=== PATIENT | female | born 1985 | race American Indian/Alaskan Native ===

== ENCOUNTER 2019-07-10 11:53 | Emergency (ER) | payer OTHER ==
[2019-07-10 12:07] VITALS: BP 104/63; PULSE 75
[2019-07-10] MEDS ORDERED: Sodium Chloride 0.9% 10 ML Syringe FLUSH PRN (12:13)
[2019-07-10] MEDS ORDERED: Aspirin 81 MG Tab.Chew PO ONE (12:14)
[2019-07-10 12:33] LABS: ANION GAP 13.8; CHLORIDE,CL 106 mmol/L (101-111); SODIUM,NA 136 mmol/L (135-145)
[2019-07-10] MEDS ORDERED: ClonazePAM 0.5 MG Tab PO ONE (13:05)
[2019-07-10] MEDS ORDERED: Omeprazole 20 MG Cap.CR PO ONE (13:05)
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
== END 2019-07-10 13:23 | disposition home or self-care (01) ==
LOC: DL.ED 11:53
DX: K20.9 Esophagitis, unspecified (principal); F41.9 Anxiety disorder, unspecified; Z88.5 Allergy status to narcotic agent
CPT/HCPCS: 36415; 71045; 80053; 83690; 84484; 85025; 85379; 93005; 99285; A9270

== ENCOUNTER 2019-08-05 05:03 | Emergency (ER) | payer MEDICAID, OTHER ==
[2019-08-05] MEDS ORDERED: Ondansetron 4 MG Tab.DIS PO ONE (05:19)
[2019-08-05 05:33] VITALS: BP 187/170; PULSE 115
[2019-08-05] MEDS ORDERED: Albuterol 0.083% 2.5 MG/3 ML Neb Soln NEB ONE (05:49)
[2019-08-05 06:28] LABS: ANION GAP 11.8; CHLORIDE,CL 107 mmol/L (101-111); SODIUM,NA 138 mmol/L (135-145)
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
== END 2019-08-05 07:14 | disposition home or self-care (01) ==
LOC: DL.ED 05:03
DX: R06.02 Shortness of breath (principal); Z88.5 Allergy status to narcotic agent
CPT/HCPCS: 36415; 71046; 80053; 85025; 87081; 87430; 87804; 99285; A9270; J7613-GY

== ENCOUNTER 2019-08-16 05:02 | Day surgery (SDC) | payer MEDICAID ==
[2019-08-16] MEDS ORDERED: Midazolam 1 MG/ML 2 ML SDV IV ONE ×3 (05:03→06:27)
[2019-08-16] MEDS ORDERED: fentaNYL 100 MCG/2 ML SDV IV ONE ×3 (05:03→06:26)
[2019-08-16] MEDS ORDERED: Sodium Chloride 0.9% 10 ML Syringe FLUSH PRN (06:00)
[2019-08-16] MEDS ORDERED: Dextrose 5%-0.45% NaCl 1,000 ML IV SCH (06:00)
[2019-08-16] MEDS ORDERED: fentaNYL 100 MCG/2 ML SDV ONE (06:12)
[2019-08-16] MEDS ORDERED: Midazolam 1 MG/ML 2 ML SDV ONE (06:12)
--- NOTE | 2019-08-16 07:15 | OR ---
DATE: 08/16/2019 PROCEDURE: Esophagogastroduodenoscopy and multiple pinch biopsies. INSTRUMENT USED: [id number] Olympus video panendoscope. PREMEDICATIONS: No oral or topical anesthesia used. Fentanyl 100 mcg intravenous, Versed 2 mg intravenous. The procedure was done under pulse oximetry, BP recording, and compliance monitor. INDICATION: The patient with history of gastric tumor surgery with persistent abdominal pain and vomiting and iron-deficiency anemia, unexplained. Esophagogastroduodenoscopy is performed for detection of any active erosive lesions, Hinson esophagus and/or malignancy also under consideration, H pylori status to be determined, small bowel biopsies to be obtained for celiac disease if indicated, endoscopic hemostasis therapy if needed. PROCEDURE IN DETAIL: The scope was passed with ease. Adequate visualization of the esophagus was made from proximal to distal areas. No upper esophageal lesions identified. No distal esophageal stricture. No uphill or downhill esophageal varices. No [place] tear. No evidence of erosive esophagitis by [place] criteria. No esophageal polyp or tumor mass identified. Z-line was seen at around 39 cm distal to the oral verge, configuration consistent with grade 1 by ZAP classification. No proximal gastric varices noted. No esophageal polyp or tumor mass identified. Gastric fundus examination by retroflexion showed no polypoid lesions. No gastric ulcer, malignant mass, or vascular ectasia identified. There was some deformity of the distal antrum. Duodenal bulb showed no ulcer. Visualized second part of the duodenum was unremarkable. Multiple pinch biopsies, 4 in number, were taken from different areas of the second part of the duodenum and tissues also were obtained from duodenal bulb at 9 and 12 o'clock positions and sent for any histopathologic evidence of celiac disease. Multiple pinch biopsies were also obtained from the gastric antrum and proximal body and sent for PyloriTek test for H pylori and histopathology. No bleeding was noted from any of the visualized areas at the completion of examination. Photographs were taken of the duodenal bulb, gastric antrum, fundus, and distal esophagus. IMPRESSION: Normal study. The patient tolerated the procedure well. [facility] /[id number]
[2019-08-16 10:15] VITALS: BP 94/51; PULSE 64
== END 2019-08-16 09:05 | disposition home or self-care (01) ==
LOC: DL.ENDO 05:02
PROVIDERS: ATTEND Internal Medicine Gastroenterology
DX: K29.50 Unspecified chronic gastritis without bleeding (principal); B96.81 Helicobacter pylori [H. pylori] as the cause of diseases classified elsewhere; D50.9 Iron deficiency anemia, unspecified; E66.09 Other obesity due to excess calories; Z88.5 Allergy status to narcotic agent; Z98.890 Other specified postprocedural states; Z87.19 Personal history of other diseases of the digestive system; Z79.899 Other long term (current) drug therapy; Z68.33 Body mass index [BMI] 33.0-33.9, adult
CPT/HCPCS: 43239; 87077; J2250; J3010; J7042

== ENCOUNTER 2019-11-21 11:32 | Emergency (ER) | payer MEDICAID ==
[2019-11-21 11:40] VITALS: BP 123/78; PULSE 81
[2019-11-21] MEDS ORDERED: LORazepam 0.5 MG Tab PO ONE (11:54)
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
== END 2019-11-21 12:31 | disposition home or self-care (01) ==
LOC: DL.ED 11:32
DX: F41.9 Anxiety disorder, unspecified (principal); F32.9 Major depressive disorder, single episode, unspecified; J45.909 Unspecified asthma, uncomplicated; E66.9 Obesity, unspecified; Z68.33 Body mass index [BMI] 33.0-33.9, adult; Z88.5 Allergy status to narcotic agent
CPT/HCPCS: 99283; A9270

== ENCOUNTER 2019-12-27 08:53 | Emergency (ER) | payer MEDICAID, OTHER ==
[2019-12-27] MEDS ORDERED: Sodium Chloride 0.9% 1,000 ML IV ONE (09:25)
[2019-12-27 09:31] VITALS: BP 113/69; PULSE 91
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
[2019-12-27] MEDS ORDERED: Ketorolac 30 MG/ML SDV IVPUSH ONE (09:54)
[2019-12-27] MEDS ORDERED: Ondansetron 4 MG/2 ML SDV IVPUSH ONE (09:54)
[2019-12-27 10:00] LABS: ANION GAP 13.9 mEq/L (7-13); CHLORIDE,CL 105 mmol/L (98-107); SODIUM,NA 139 mmol/L (136-145)
--- NOTE | 2019-12-27 10:34 | CT ---
PROCEDURE INFORMATION: Exam: CT Abdomen And Pelvis Without Contrast Exam date and time: 12/27/2019 10:15 AM Age: 34 years old Clinical indication: Lower abdominal pain TECHNIQUE: Imaging protocol: Computed tomography of the abdomen and pelvis without contrast. Radiation optimization: All CT scans at this facility use at least one of these dose optimization techniques: automated exposure control; mA and/or kV adjustment per patient size (includes targeted exams where dose is matched to clinical indication); or iterative reconstruction. COMPARISON: No relevant prior studies available. FINDINGS: Lungs: No acute basilar lung consolidation. Liver: The liver is homogeneous and is not enlarged. Prior partial hepatectomy. Gallbladder and bile ducts: No calcified gallstones, gallbladder wall thickening, or pericholecystic inflammation. No biliary ductal dilation. Pancreas: No peripancreatic inflammation. No pancreatic ductal dilation. Spleen: The spleen is homogeneous and is not enlarged. Adrenals: No adrenal mass. Kidneys and ureters: No hydronephrosis or nephrolithiasis. Stomach and bowel: No bowel obstruction, colitis or diverticulitis. Appendix: The appendix has a normal caliber with no wall thickening. No periappendiceal stranding. Intraperitoneal space: No gross ascites or pneumoperitoneum. Vasculature: No abdominal aortic aneurysm. No iliac or common femoral artery aneurysm. Lymph nodes: No pathologically enlarged lymph nodes. Bladder: The urinary bladder is small in volume. No bladder calculus. Reproductive: There is an ovoid tissue structure in the cul-de-sac measuring up to 4.4 cm in size. This may represent an enlarged ovary. Bones/joints: There is disc degeneration at L5-S1. Soft tissues: No acute soft tissue abnormality. IMPRESSION: 1. Possible enlarged, retrouterine left ovary. Given the history of lower abdominal pain, consider pelvic ultrasound to rule out ovarian torsion, as clinically directed. 2. Normal appendix. 3. No bowel obstruction, colitis or diverticulitis.
[2019-12-27] MEDS ORDERED: Acetaminophen/HYDROcodone 325-5 MG Tab PO ONE (12:06)
--- NOTE | 2019-12-27 12:49 | US ---
EXAMINATION: Pelvis Non OB Ltd SEX: Female AGE: 34 years CLINICAL HISTORY: 34-year-old female complaining of lower abdominal PAIN. CT exam earlier today reported "4.4 cm ovoid tissue structure posterior cul-de-sac that may represent enlarged retrouterine left ovary ("ovarian torsion" given as a differential consideration). Interpretation: (Transabdominal and endovaginal probes) 1. Midline uterus normal size and anatomic configuration measuring 8.8 cm L x 6.2 cm W x 3.9 cm AP diameter. Normal central endometrial "stripe". No myometrial or endometrial mass lesion. No IUP. 2. Asymmetrically larger left ovary measures 4.1 cm L x 3.8 cm W x 3.0 cm AP diameter and has a discrete echogenic solid 2.5 x 2.6 x 2.7 cm diameter "mass" i.e. probable hemorrhagic cyst. 3. Contralateral right ovary measures 2.9 cm L x 2.6 cm W x 1.1 cm AP diameter. Tiny physiologic follicular type cysts right ovary. 4. No extraovarian adnexal mass lesions or free fluid in the cul-de-sac. 5. Normal blood flow in both ovaries documented with power Doppler. CONCLUSION: Probable hemorrhagic cyst left ovary. Normal uterus and right ovary. No current evidence of ovarian torsion.
== END 2019-12-27 12:22 | disposition home or self-care (01) ==
LOC: DL.ED 08:53
DX: N39.0 Urinary tract infection, site not specified (principal); R31.9 Hematuria, unspecified; N83.202 Unspecified ovarian cyst, left side; E66.9 Obesity, unspecified; Z68.31 Body mass index [BMI] 31.0-31.9, adult; Z98.890 Other specified postprocedural states; Z88.5 Allergy status to narcotic agent
CPT/HCPCS: 36415; 74176; 76830; 76857; 80053; 80305; 81001; 81025; 85025; 87086; 87088; 87186; 96374; 96375; 99284; J1885; J2405; J7030

== ENCOUNTER 2020-03-30 12:31 | Emergency (ER) | payer MEDICAID, OTHER ==
[2020-03-30 13:09] VITALS: BP 115/80; PULSE 99
[2020-03-30 13:52] LABS: ANION GAP 15.6 mEq/L (7-13); CHLORIDE,CL 105 mmol/L (98-107); SODIUM,NA 142 mmol/L (136-145)
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
== END 2020-03-30 14:21 | disposition left against medical advice (07) ==
LOC: DL.ED 12:31
DX: N94.6 Dysmenorrhea, unspecified (principal); N92.1 Excessive and frequent menstruation with irregular cycle; F17.210 Nicotine dependence, cigarettes, uncomplicated; J45.909 Unspecified asthma, uncomplicated; E66.9 Obesity, unspecified; Z88.5 Allergy status to narcotic agent; Z68.29 Body mass index [BMI] 29.0-29.9, adult
CPT/HCPCS: 36415; 80053; 80305-QW; 80307; 81001; 81025; 84702; 85025; 99284

== ENCOUNTER 2020-03-30 19:09 | Emergency (ER) | payer MEDICAID, OTHER ==
[2020-03-30 20:10] VITALS: BP 118/79; PULSE 98
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
== END 2020-03-30 20:21 | disposition home or self-care (01) ==
LOC: DL.ED 19:09
DX: N94.6 Dysmenorrhea, unspecified (principal); R82.5 Elevated urine levels of drugs, medicaments and biological substances; J45.909 Unspecified asthma, uncomplicated; E66.9 Obesity, unspecified; F17.210 Nicotine dependence, cigarettes, uncomplicated; Z88.5 Allergy status to narcotic agent; Z68.29 Body mass index [BMI] 29.0-29.9, adult
CPT/HCPCS: 99283

== ENCOUNTER 2020-04-02 09:39 | Emergency (ER) | payer MEDICAID | END 2020-04-02 09:53 | disposition left against medical advice (07) | LOC: DL.ED 09:39 | DX: Z53.21 Procedure and treatment not carried out due to patient leaving prior to being seen by health care provider (principal) ==

== ENCOUNTER 2020-06-05 09:49 | Emergency (ER) | payer MEDICAID ==
[2020-06-05 10:04] VITALS: BP 123/68; PULSE 101
[2020-06-05] MEDS ORDERED: LORazepam 0.5 MG Tab PO ONE (10:09)
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
[2020-06-05 10:47] LABS: ANION GAP 14.8 mEq/L (7-13); CHLORIDE,CL 100 mmol/L (98-107); SODIUM,NA 135 mmol/L (136-145)
== END 2020-06-05 11:00 | disposition home or self-care (01) ==
LOC: DL.ED 09:49
DX: F41.9 Anxiety disorder, unspecified (principal); J45.909 Unspecified asthma, uncomplicated; E66.9 Obesity, unspecified; Z68.30 Body mass index [BMI] 30.0-30.9, adult; Z88.5 Allergy status to narcotic agent
CPT/HCPCS: 36415; 80053; 80307; 83605; 84484; 85025; 85379; 87040; 93005; 99285; A9270

== ENCOUNTER 2020-07-22 11:55 | Emergency (ER) | payer MEDICAID | END 2020-07-22 12:06 | disposition left against medical advice (07) | LOC: DL.ED 11:55 | DX: Z53.21 Procedure and treatment not carried out due to patient leaving prior to being seen by health care provider (principal) ==

== ENCOUNTER 2021-03-21 11:42 | Emergency (ER) | payer MEDICAID ==
[2021-03-21] MEDS ORDERED: LORazepam 1 MG Tab PO ONE (11:52)
[2021-03-21 11:59] VITALS: BP 129/98; PULSE 90
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
== END 2021-03-21 12:12 | disposition home or self-care (01) ==
LOC: DL.ED 11:42
DX: F41.0 Panic disorder [episodic paroxysmal anxiety] (principal); F43.20 Adjustment disorder, unspecified; E66.9 Obesity, unspecified; Z88.5 Allergy status to narcotic agent; Z68.29 Body mass index [BMI] 29.0-29.9, adult
CPT/HCPCS: 99283; A9270

== ENCOUNTER 2021-10-19 14:44 | Emergency (ER) | payer MEDICAID ==
[2021-10-19] MEDS ORDERED: Ondansetron 4 MG Tab.DIS PO ONE (14:45)
[2021-10-19 15:09] LABS: AMPHETAMINES,URINE POSITIVE (NEGATIVE); BARBITURATES,URINE NEGATIVE (NEGATIVE); BENZODIAZEPINE,URINE NEGATIVE (NEGATIVE); MDMA (ECSTASY), URINE NEGATIVE (NEGATIVE); METHADONE,URINE NEGATIVE (NEGATIVE); METHAMPHETAMINES,URINE POSITIVE (NEGATIVE); OPIATES,URINE NEGATIVE (NEGATIVE); OXYCODONE,URINE NEGATIVE (NEGATIVE); PHENCYCLIDINE,URINE NEGATIVE (NEGATIVE); TCA,URINE NEGATIVE (NEGATIVE)
[2021-10-19 15:16] VITALS: BP 133/72; PULSE 84
[2021-10-19] MEDS ORDERED: Sodium Chloride 0.9% 10 ML Syringe FLUSH PRN (16:40)
[2021-10-19] MEDS ORDERED: Sodium Chloride 0.9% 1,000 ML IV ONE (16:41)
[2021-10-19] MEDS ORDERED: Ondansetron 4 MG/2 ML SDV IV ONE (16:41)
[2021-10-19] MEDS ORDERED: Ketorolac 30 MG/ML SDV IVPUSH ONE (16:42)
[2021-10-19 17:16] LABS: CHLORIDE,CL 104 mmol/L (98-107); SODIUM,NA 139 mmol/L (136-145)
[2021-10-19 17:27] LABS: CORONAVIRUS COVID-19 NAA NEGATIVE (NEGATIVE); RESPIRATORY SYNCYTIAL VIR NAA NEGATIVE (NEGATIVE)
[2021-10-19] MEDS ORDERED: Ondansetron 4 MG Tab.DIS ONE (17:59)
== END 2021-10-19 18:11 | disposition home or self-care (01) ==
LOC: DL.ED 14:44
DX: A08.4 Viral intestinal infection, unspecified (principal); Z20.822 Contact with and (suspected) exposure to COVID-19; Z88.5 Allergy status to narcotic agent
CPT/HCPCS: 0241U; 36415; 80053; 80305-QW; 81001; 81025; 83605; 85025; 86140; 87040; 87086; 96374; 96375; 99283; 99284-25; A9270-GY; J1885; J2405; J3490; J7030

== ENCOUNTER 2022-01-01 21:26 | Emergency (ER) | payer MEDICAID | END 2022-01-01 22:21 | disposition left against medical advice (07) | LOC: DL.ED 21:26 | DX: Z53.21 Procedure and treatment not carried out due to patient leaving prior to being seen by health care provider (principal) ==

== ENCOUNTER 2022-03-27 10:16 | Emergency (ER) | payer MEDICAID, OTHER ==
[2022-03-27] MEDS ORDERED: Magnesium Citrate Solution 296 ML Bottle PO ONE (10:17)
[2022-03-27 10:25] VITALS: BP 107/86; PULSE 80
[2022-03-27] MEDS ORDERED: Acetaminophen 500 MG Tab PO ONE (11:08)
[2022-03-27] MEDS ORDERED: Ondansetron 4 MG Tab.DIS PO ONE (11:08)
[2022-03-27 11:18] LABS: CORONAVIRUS COVID-19 NAA NEGATIVE (NEGATIVE)
[2022-03-27 11:56] LABS: AMPHETAMINES,URINE NEGATIVE (NEGATIVE); BARBITURATES,URINE NEGATIVE (NEGATIVE); BENZODIAZEPINE,URINE NEGATIVE (NEGATIVE); MDMA (ECSTASY), URINE NEGATIVE (NEGATIVE); METHADONE,URINE NEGATIVE (NEGATIVE); METHAMPHETAMINES,URINE NEGATIVE (NEGATIVE); OPIATES,URINE NEGATIVE (NEGATIVE); OXYCODONE,URINE NEGATIVE (NEGATIVE); PHENCYCLIDINE,URINE NEGATIVE (NEGATIVE); TCA,URINE NEGATIVE (NEGATIVE)
[2022-03-27 12:00] LABS: CHLORIDE,CL 103 mmol/L (98-107); SODIUM,NA 139 mmol/L (136-145)
[2022-03-27 12:03] LABS: ESTIMATED GFR 118 mL/min (>=60)
[2022-03-27] MEDS ORDERED: Magnesium Citrate Solution 296 ML Bottle ONE (13:18)
[2022-03-30 16:47] LABS: C.TRACHOMATIS BY TMA Negative (Negative); N.GONORRHOEAE BY TMA Negative (Negative)
== END 2022-03-27 13:23 | disposition home or self-care (01) ==
LOC: DL.ED 10:16
DX: K59.01 Slow transit constipation (principal); D64.9 Anemia, unspecified; E66.9 Obesity, unspecified; Z68.35 Body mass index [BMI] 35.0-35.9, adult; Z88.5 Allergy status to narcotic agent; Z86.16 Personal history of COVID-19; Z20.822 Contact with and (suspected) exposure to COVID-19
CPT/HCPCS: 0240U; 36415; 74019; 80053; 80305; 80307; 81003; 82140; 82150; 83605; 83690; 83735; 84145; 84443; 84703; 85025; 86140; 87491; 87563; 87591; 99284; A9270

== ENCOUNTER 2022-05-19 13:27 | Emergency (ER) | payer MEDICAID ==
[2022-05-19 14:45] VITALS: BP 109/73; PULSE 84
[2022-05-19 15:02] LABS: ANION GAP 14.6 mEq/L (7-13)
== END 2022-05-19 15:50 | disposition home or self-care (01) ==
LOC: DL.ED 13:27
DX: D64.9 Anemia, unspecified (principal); F17.210 Nicotine dependence, cigarettes, uncomplicated; E66.9 Obesity, unspecified; Z68.30 Body mass index [BMI] 30.0-30.9, adult; Z88.6 Allergy status to analgesic agent; Z79.899 Other long term (current) drug therapy
CPT/HCPCS: 36415; 76817; 80053; 81001; 84702; 85025; 99284

== ENCOUNTER 2022-06-19 15:40 | Emergency (ER) | payer MEDICAID | END 2022-06-19 17:20 | disposition left against medical advice (07) | LOC: DL.ED 15:40 | DX: Z53.21 Procedure and treatment not carried out due to patient leaving prior to being seen by health care provider (principal) ==

== ENCOUNTER 2022-07-22 09:23 | Emergency (ER) | payer MEDICAID ==
[2022-07-22] MEDS ORDERED: Sodium Chloride 0.9% 10 ML Syringe FLUSH PRN (09:31)
[2022-07-22] MEDS ORDERED: HYDROmorphone 0.5 MG/0.5 ML Syringe IVPUSH ONE (09:35)
[2022-07-22] MEDS ORDERED: Ondansetron 4 MG/2 ML SDV IVPUSH ONE (09:35)
[2022-07-22 09:49] VITALS: BP 129/67; PULSE 82
[2022-07-22 10:10] LABS: ANION GAP 13.5 mEq/L (7-13); CHLORIDE,CL 106 mmol/L (98-107); SODIUM,NA 139 mmol/L (136-145)
[2022-07-22 10:11] LABS: AMPHETAMINES,URINE NEGATIVE (NEGATIVE); BARBITURATES,URINE NEGATIVE (NEGATIVE); BENZODIAZEPINE,URINE NEGATIVE (NEGATIVE); MDMA (ECSTASY), URINE NEGATIVE (NEGATIVE); METHADONE,URINE NEGATIVE (NEGATIVE); METHAMPHETAMINES,URINE NEGATIVE (NEGATIVE); OPIATES,URINE NEGATIVE (NEGATIVE); OXYCODONE,URINE NEGATIVE (NEGATIVE); PHENCYCLIDINE,URINE NEGATIVE (NEGATIVE); TCA,URINE NEGATIVE (NEGATIVE)
[2022-07-22 10:16] LABS: ESTIMATED GFR 121 mL/min (>=60)
[2022-07-22 10:31] LABS: CORONAVIRUS COVID-19 NAA NEGATIVE (NEGATIVE); RESPIRATORY SYNCYTIAL VIR NAA NEGATIVE (NEGATIVE)
== END 2022-07-22 10:41 | disposition home or self-care (01) ==
LOC: DL.ED 09:23
DX: O99.891 Other specified diseases and conditions complicating pregnancy (principal); R10.32 Left lower quadrant pain; Z88.5 Allergy status to narcotic agent; Z86.16 Personal history of COVID-19; Z3A.18 18 weeks gestation of pregnancy; Z20.822 Contact with and (suspected) exposure to COVID-19
CPT/HCPCS: 0241U; 36415; 76815; 80053; 80305; 81001; 82150; 83605; 83690; 83735; 85025; 86140; 87040; 87086; 96374; 96375; 99284; J1170; J2405; J3490

== ENCOUNTER 2022-10-22 16:32 | Emergency (ER) | payer MEDICAID ==
[2022-10-22] MEDS ORDERED: Ondansetron 4 MG Tab.DIS ONE (18:43)
[2022-10-22] MEDS ORDERED: hydrOXYzine HCl 25 MG Tab ONE (18:44)
== END 2022-10-22 17:02 | disposition home or self-care (01) ==
LOC: DL.ED 16:32
DX: Z53.8 Procedure and treatment not carried out for other reasons (principal)

== ENCOUNTER 2022-11-09 19:00 | Emergency (ER) | payer MEDICAID ==
[2022-11-09] MEDS ORDERED: hydrOXYzine HCl 25 MG Tab PO ONE (19:23)
[2022-11-09 19:31] VITALS: BP 111/63; PULSE 101
[2022-11-09] MEDS ORDERED: Albuterol/Ipratropium 3.0-0.5 MG/3 ML Neb Soln NEB ONE (20:03)
== END 2022-11-09 20:22 | disposition home or self-care (01) ==
LOC: DL.ED 19:00
DX: O99.343 Other mental disorders complicating pregnancy, third trimester (principal); F41.9 Anxiety disorder, unspecified; O99.513 Diseases of the respiratory system complicating pregnancy, third trimester; J45.909 Unspecified asthma, uncomplicated; O99.213 Obesity complicating pregnancy, third trimester; E66.9 Obesity, unspecified; Z86.16 Personal history of COVID-19; Z88.5 Allergy status to narcotic agent; Z3A.32 32 weeks gestation of pregnancy; Z68.34 Body mass index [BMI] 34.0-34.9, adult
CPT/HCPCS: 99283; 99284; A9270-GY; J7620-GY

== ENCOUNTER 2023-07-02 12:10 | Emergency (ER) | payer MEDICAID ==
[2023-07-02] MEDS ORDERED: Sodium Chloride 0.9% 10 ML Syringe FLUSH PRN (12:12)
[2023-07-02 12:31] VITALS: BP 134/77; PULSE 112
== END 2023-07-02 12:39 | disposition left against medical advice (07) ==
LOC: DL.ED 12:10
DX: Z53.21 Procedure and treatment not carried out due to patient leaving prior to being seen by health care provider (principal)

== ENCOUNTER 2023-07-06 16:08 | Emergency (ER) | payer MEDICAID ==
[2023-07-06] MEDS ORDERED: Acetaminophen 500 MG Tab PO ONE (17:32)
[2023-07-06] MEDS ORDERED: Ketorolac 30 MG/ML SDV IM ONE (17:32)
== END 2023-07-06 17:54 | disposition home or self-care (01) ==
LOC: DL.ED 16:08
DX: S29.9XXA Unspecified injury of thorax, initial encounter (principal); J18.9 Pneumonia, unspecified organism; J45.909 Unspecified asthma, uncomplicated; E66.9 Obesity, unspecified; Z86.16 Personal history of COVID-19; Z88.5 Allergy status to narcotic agent; Z79.899 Other long term (current) drug therapy; W22.8XXA Striking against or struck by other objects, initial encounter
CPT/HCPCS: 71101-LT; 96372; 99283; 99284; A9270-GY; J1885

== ENCOUNTER 2023-07-07 09:12 | Emergency (ER) | payer MEDICAID ==
[2023-07-07] MEDS ORDERED: Sodium Chloride 0.9% 10 ML Syringe FLUSH PRN (09:24)
[2023-07-07] MEDS ORDERED: Ketorolac 30 MG/ML SDV IVPUSH ONE (09:25)
[2023-07-07] MEDS ORDERED: Lidocaine 5% 700 MG Patch TOP ONE (09:25)
[2023-07-07] MEDS ORDERED: LORazepam 2 MG/ML SDV IVPUSH ONE (09:31)
[2023-07-07] MEDS: diphenhydrAMINE 50 MG/ML SDV IVPUSH ONE ×2 (09:45→10:02)
[2023-07-07] MEDS ORDERED: Ketamine 500 mg/10 ML MDV IV ONE (09:49)
[2023-07-07 10:02] LABS: HEMATOCRIT 37.5 % (37.0-47.0); HEMOGLOBIN 11.3 g/dL (12.0-16.0); MEAN CORPUSCULAR HEMOGLOBIN 21.2 pg (27.0-34.0); MEAN CORPUSCULAR HGB CONC 30.1 g/dL (33.0-35.0); MEAN CORPUSCULAR VOLUME 70.2 fL (80-100); PLATELET COUNT,PLT 305 10^3/uL (150-450); RED BLOOD CELL COUNT 5.34 10^6/uL (4.2-5.4); WHITE BLOOD CELL COUNT,WBC 12.8 10^3/uL (5.0-10.0)
[2023-07-07] MEDS ORDERED: LORazepam 2 MG/ML SDV IM ONE (10:07)
[2023-07-07 10:13] LABS: BASOPHILS PERCENT AUTO 0.1 % (0.0-1.0); LYMPHOCYTES PERCENT AUTO 14.2 % (20.5-50.1); MONOCYTES PERCENT AUTO 8.8 % (2-8); NEUTROPHILS PERCENT AUTO 75.9 % (42.2-75.2)
[2023-07-07 10:18] LABS: AMPHETAMINES,URINE POSITIVE (NEGATIVE); BARBITURATES,URINE NEGATIVE (NEGATIVE); BENZODIAZEPINE,URINE NEGATIVE (NEGATIVE); MDMA (ECSTASY), URINE POSITIVE (NEGATIVE); METHADONE,URINE NEGATIVE (NEGATIVE); METHAMPHETAMINES,URINE POSITIVE (NEGATIVE); OPIATES,URINE NEGATIVE (NEGATIVE); OXYCODONE,URINE NEGATIVE (NEGATIVE); PHENCYCLIDINE,URINE NEGATIVE (NEGATIVE); TCA,URINE NEGATIVE (NEGATIVE)
[2023-07-07 10:21] LABS: A/G RATIO 0.7; ALANINE AMINOTRANSFERASE,ALT 41 U/L (14-59); ALBUMIN 3.5 g/dL (3.4-5.0); ALKALINE PHOSPHATASE 136 U/L (46-116); ANION GAP 16.6 mEq/L (7-13); ASPARTATE AMNIOTRANSFERASE,AST 22 U/L (15-37); BILIRUBIN TOTAL 0.8 mg/dL (0.2-1.0); BLOOD UREA NITROGEN,BUN 12 mg/dL (7-18); BUN/CREATININE RATIO 18.5 (No establ ref range); CALCIUM 8.5 mg/dL (8.5-10.1); CARBON DIOXIDE,CO2 22 mmol/L (21-32); CHLORIDE,CL 101 mmol/L (98-107); CREATININE 0.65 mg/dL (0.55-1.02); EST CRCL DRUG DOSING (CG) 125.66 mL/min; GLUCOSE RANDOM 112 mg/dL (70-99); POTASSIUM,K 3.6 mmol/L (3.5-5.1); PROTEIN TOTAL,TP 8.2 g/dL (6.4-8.2); SODIUM,NA 136 mmol/L (136-145)
[2023-07-07 10:25] LABS: ESTIMATED GFR 115 mL/min (>=60)
[2023-07-07 10:26] LABS: LACTIC ACID 1.7 mmol/L (0.4-2.0)
[2023-07-07 10:28] LABS: EOSINOPHILS PERCENT MAN 1 % (1-3); LYMPHOCYTES PERCENT MAN 13 % (20-50); MONOCYTES PERCENT MAN 6 % (2-8); SEG NEUTROPHILS PERCENT MAN 80 % (42-75)
[2023-07-07] MEDS ORDERED: cefTRIAXone 2 GM Vial IVPUSH ONE (10:28)
[2023-07-07 10:29] LABS: HCG QUALITATIVE,SERUM NEGATIVE (NEGATIVE)
[2023-07-07] MEDS ORDERED: Sodium Chloride 0.9% 1,000 ML IV ONE (10:30)
[2023-07-07 11:16] LABS: CORONAVIRUS COVID-19 NAA NEGATIVE (NEGATIVE); INFLUENZA A NAA POSITIVE (NEGATIVE); INFLUENZA B NAA NEGATIVE (NEGATIVE)
[2023-07-07] MEDS ORDERED: Ondansetron 4 MG/2 ML SDV IVPUSH ONE (11:37)
[2023-07-07 12:07] VITALS: BP 105/64; PULSE 103
== END 2023-07-07 12:51 | disposition home or self-care (01) ==
LOC: DL.ED 09:12
DX: J18.9 Pneumonia, unspecified organism (principal); F15.10 Other stimulant abuse, uncomplicated; J45.909 Unspecified asthma, uncomplicated; E66.9 Obesity, unspecified; Z86.16 Personal history of COVID-19; Z79.899 Other long term (current) drug therapy; Z88.5 Allergy status to narcotic agent; Z68.29 Body mass index [BMI] 29.0-29.9, adult
CPT/HCPCS: 0240U; 36415; 80053; 80305-QW; 83605; 84703; 85025; 86140; 87040; 96372; 96374; 96375; 99284; 99284-25; A9270-GY; J0696; J1200; J1885; J2060; J2405; J3490; J7030

== ENCOUNTER 2023-07-11 13:22 | Emergency (ER) | payer MEDICAID ==
[2023-07-11] MEDS ORDERED: Sodium Chloride 0.9% 10 ML Syringe FLUSH PRN (13:36)
[2023-07-11] MEDS ORDERED: Sodium Chloride 0.9% 3,000 ML IV ONE (13:39)
[2023-07-11] MEDS ORDERED: Albuterol/Ipratropium 3.0-0.5 MG/3 ML Neb Soln NEB ONE (13:39)
[2023-07-11] MEDS ORDERED: diphenhydrAMINE 50 MG/ML SDV IVPUSH ONE (13:39)
[2023-07-11] MEDS ORDERED: Ondansetron 4 MG/2 ML SDV IV ONE (13:39)
[2023-07-11] MEDS ORDERED: LORazepam 2 MG/ML SDV IVPUSH ONE (13:42)
[2023-07-11 13:55] LABS: HEMATOCRIT 35.7 % (37.0-47.0); HEMOGLOBIN 10.6 g/dL (12.0-16.0); MEAN CORPUSCULAR HEMOGLOBIN 20.7 pg (27.0-34.0); MEAN CORPUSCULAR HGB CONC 29.7 g/dL (33.0-35.0); MEAN CORPUSCULAR VOLUME 69.9 fL (80-100); PLATELET COUNT,PLT 493 10^3/uL (150-450); RED BLOOD CELL COUNT 5.11 10^6/uL (4.2-5.4); WHITE BLOOD CELL COUNT,WBC 8.3 10^3/uL (5.0-10.0)
[2023-07-11 14:03] LABS: BASOPHILS PERCENT AUTO 0.1 % (0.0-1.0); EOSINOPHILS PERCENT AUTO 2.4 % (1.0-3.0); LYMPHOCYTES PERCENT AUTO 13.7 % (20.5-50.1); MONOCYTES PERCENT AUTO 11.1 % (2-8); NEUTROPHILS PERCENT AUTO 72.7 % (42.2-75.2)
[2023-07-11] MEDS ORDERED: Iopamidol 755 Mg/ML 100 ML Bottle IVPUSH ONE (14:07)
[2023-07-11 14:15] LABS: A/G RATIO 0.57; ALANINE AMINOTRANSFERASE,ALT 32 U/L (14-59); ALBUMIN 2.9 g/dL (3.4-5.0); ALKALINE PHOSPHATASE 126 U/L (46-116); ANION GAP 12.7 mEq/L (7-13); ASPARTATE AMNIOTRANSFERASE,AST 12 U/L (15-37); BAND PERCENT MAN 1 %; BILIRUBIN TOTAL 0.5 mg/dL (0.2-1.0); BLOOD UREA NITROGEN,BUN 6 mg/dL (7-18); BUN/CREATININE RATIO 9.5 (No establ ref range); CALCIUM 8.4 mg/dL (8.5-10.1); CARBON DIOXIDE,CO2 28 mmol/L (21-32); CHLORIDE,CL 102 mmol/L (98-107); CREATININE 0.63 mg/dL (0.55-1.02); EOSINOPHILS PERCENT MAN 2 % (1-3); ESTIMATED GFR 116 mL/min (>=60); GLUCOSE RANDOM 123 mg/dL (70-99); LYMPHOCYTES PERCENT MAN 14 % (20-50); MONOCYTES PERCENT MAN 6 % (2-8); POTASSIUM,K 3.7 mmol/L (3.5-5.1); SEG NEUTROPHILS PERCENT MAN 77 % (42-75); SODIUM,NA 139 mmol/L (136-145)
[2023-07-11 14:17] LABS: HCG QUALITATIVE,SERUM NEGATIVE (NEGATIVE)
[2023-07-11 14:19] LABS: LACTIC ACID 0.9 mmol/L (0.4-2.0)
[2023-07-11 15:47] VITALS: BP 128/70; PULSE 90
[2023-07-11] MEDS ORDERED: Piperacillin/Tazobactam 4.5 GM in Sodium Chloride 0.9% 100 ML IV ONE (15:49)
== END 2023-07-11 16:36 | disposition home or self-care (01) ==
LOC: DL.ED 13:22
DX: R09.1 Pleurisy (principal); J10.1 Influenza due to other identified influenza virus with other respiratory manifestations; J69.0 Pneumonitis due to inhalation of food and vomit; E07.9 Disorder of thyroid, unspecified; E66.9 Obesity, unspecified; Z86.16 Personal history of COVID-19; Z79.899 Other long term (current) drug therapy; Z88.5 Allergy status to narcotic agent
CPT/HCPCS: 36415; 71275; 80053; 83605; 84145; 84703; 85025; 86140; 87040; 96361; 96365; 96375; 99284; J1200; J2060; J2405; J2543; J3490; J7030; Q9967; J7620-GY

== ENCOUNTER 2024-07-18 10:34 | Emergency (ER) | payer MEDICAID ==
[2024-07-18 10:44] VITALS: BP 115/61; PULSE 81
== END 2024-07-18 10:55 | disposition home or self-care (01) ==
LOC: DL.ED 10:34
DX: F11.21 Opioid dependence, in remission (principal); J45.909 Unspecified asthma, uncomplicated; E66.9 Obesity, unspecified; Z86.16 Personal history of COVID-19; Z79.899 Other long term (current) drug therapy; Z88.5 Allergy status to narcotic agent; Z68.32 Body mass index [BMI] 32.0-32.9, adult
CPT/HCPCS: 99283; 99284

== ENCOUNTER 2024-10-13 20:29 | Emergency (ER) | payer MEDICAID ==
[2024-10-13] MEDS: Ketorolac 30 MG/ML SDV IM ONE (20:23)
[2024-10-13 20:52] LABS: BASOPHILS PERCENT AUTO 0.5 % (0.0-1.0); EOSINOPHILS PERCENT AUTO 7.1 % (1.0-3.0); HEMATOCRIT 27.4 % (37.0-47.0); HEMOGLOBIN 7.2 g/dL (12.0-16.0); LYMPHOCYTES PERCENT AUTO 22.2 % (20.5-50.1); MEAN CORPUSCULAR HGB CONC 26.3 g/dL (33.0-35.0); MEAN CORPUSCULAR VOLUME 60.8 fL (80-100); NEUTROPHILS PERCENT AUTO 60.2 % (42.2-75.2); PLATELET COUNT,PLT 355 10^3/uL (150-450); RED BLOOD CELL COUNT 4.51 10^6/uL (4.2-5.4); WHITE BLOOD CELL COUNT,WBC 5.8 10^3/uL (5.0-10.0)
[2024-10-13] MEDS: Diazepam 5 MG Tab PO ONE (20:55)
[2024-10-13 21:11] LABS: ALANINE AMINOTRANSFERASE,ALT 39 U/L (14-59); ALBUMIN 3.3 g/dL (3.4-5.0); ALKALINE PHOSPHATASE 159 U/L (46-116); ANION GAP 15.3 mEq/L (7-13); ASPARTATE AMNIOTRANSFERASE,AST 26 U/L (15-37); BILIRUBIN TOTAL 0.3 mg/dL (0.2-1.0); BLOOD UREA NITROGEN,BUN 7 mg/dL (7-18); BUN/CREATININE RATIO 13.7 (No establ ref range); CALCIUM 8.1 mg/dL (8.5-10.1); CARBON DIOXIDE,CO2 25 mmol/L (21-32); CHLORIDE,CL 108 mmol/L (98-107); CREATININE 0.51 mg/dL (0.55-1.02); GLUCOSE RANDOM 143 mg/dL (70-99); LIPASE 49 U/L (16-77); MAGNESIUM 1.8 mg/dL (1.8-2.4); POTASSIUM,K 3.3 mmol/L (3.5-5.1); SODIUM,NA 145 mmol/L (136-145)
[2024-10-13 21:12] LABS: A/G RATIO 0.89; C-REACTIVE PROTEIN < 0.50 ng/dL (<=0.50); ESTIMATED GFR 120 mL/min (>=60)
[2024-10-13 21:13] LABS: ETHANOL BLOOD MEDICAL < 3 mg/dL (0)
[2024-10-13] MEDS ORDERED: Naloxone 2 MG/2 ML Syringe IVPUSH PRN (21:47)
[2024-10-13] MEDS: fentaNYL 100 MCG/2 ML SDV IVPUSH ONE (22:32)
[2024-10-14 00:06] VITALS: BP 109/60; PULSE 81
[2024-10-14] MEDS: Pantoprazole 40 MG Vial IVPUSH ONE (00:10)
== END 2024-10-14 01:03 ==
LOC: DL.ED 20:29
DX: K92.2 Gastrointestinal hemorrhage, unspecified (principal); D62 Acute posthemorrhagic anemia; M54.50 Low back pain, unspecified; Z88.5 Allergy status to narcotic agent; Z79.899 Other long term (current) drug therapy; Z86.16 Personal history of COVID-19
CPT/HCPCS: 36415; 36430; 72131; 80053; 80307; 82272; 83690; 83735; 85025; 86140; 86850; 86900; 86901; 86920; 86922; 87389; 96372; 96374; 96375; 99285; 99285-25; A9270-GY; J1885; J2470; J3010; P9016

== ENCOUNTER 2024-12-23 14:19 | Emergency (ER) | payer MEDICAID ==
[2024-12-23] MEDS ORDERED: Sodium Chloride 0.9% 10 ML Syringe FLUSH PRN (14:52)
[2024-12-23 15:03] LABS: BASOPHILS PERCENT AUTO 0.2 % (0.0-1.0); EOSINOPHILS PERCENT AUTO 2.4 % (1.0-3.0); HEMATOCRIT 30.3 % (37.0-47.0); HEMOGLOBIN 8.5 g/dL (12.0-16.0); LYMPHOCYTES PERCENT AUTO 19.1 % (20.5-50.1); MEAN CORPUSCULAR HEMOGLOBIN 17.5 pg (27.0-34.0); MEAN CORPUSCULAR HGB CONC 28.1 g/dL (33.0-35.0); MEAN CORPUSCULAR VOLUME 62.3 fL (80-100); MONOCYTES PERCENT AUTO 7.3 % (2-8); PLATELET COUNT,PLT 383 10^3/uL (150-450); RED BLOOD CELL COUNT 4.86 10^6/uL (4.2-5.4); WHITE BLOOD CELL COUNT,WBC 5.9 10^3/uL (5.0-10.0)
[2024-12-23 15:23] LABS: ALANINE AMINOTRANSFERASE,ALT 34 U/L (14-59); ALBUMIN 3.3 g/dL (3.4-5.0); ALKALINE PHOSPHATASE 136 U/L (46-116); ANION GAP 15.6 mEq/L (7-13); ASPARTATE AMNIOTRANSFERASE,AST 18 U/L (15-37); BILIRUBIN TOTAL 0.4 mg/dL (0.2-1.0); BLOOD UREA NITROGEN,BUN 6 mg/dL (7-18); BUN/CREATININE RATIO 9.8 (No establ ref range); C-REACTIVE PROTEIN 0.52 ng/dL (<=0.50); CARBON DIOXIDE,CO2 23 mmol/L (21-32); CHLORIDE,CL 107 mmol/L (98-107); CREATININE 0.61 mg/dL (0.55-1.02); GLUCOSE RANDOM 125 mg/dL (70-99); MAGNESIUM 1.9 mg/dL (1.8-2.4); POTASSIUM,K 3.6 mmol/L (3.5-5.1); PROTEIN TOTAL,TP 7.3 g/dL (6.4-8.2); SODIUM,NA 142 mmol/L (136-145)
[2024-12-23 15:24] LABS: A/G RATIO 0.83; ESTIMATED GFR 115 mL/min (>=60)
[2024-12-23] MEDS: Tranexamic Acid 1,000 MG in Sodium Chloride 0.9% 500 ML IV ONE (15:33)
[2024-12-23] MEDS: Sodium Chloride 0.9% 1,000 ML IV ONE (15:49)
[2024-12-23 16:33] LABS: APPEARANCE,URINE CLOUDY (CLEAR); BILIRUBIN,URINE SMALL (NEGATIVE); COLOR,URINE RED (YELLOW); GLUCOSE,URINE NEGATIVE (NEGATIVE); KETONES,URINE TRACE (NEGATIVE); LEUKOCYTE ESTERASE,URINE NEGATIVE (NEGATIVE); NITRITE,URINE POSITIVE (NEGATIVE); OCCULT BLOOD,URINE LARGE (NEGATIVE); PROTEIN,URINE >=300 (NEGATIVE)
[2024-12-23 16:37] LABS: AMPHETAMINES,URINE NEGATIVE (NEGATIVE); BARBITURATES,URINE NEGATIVE (NEGATIVE); BENZODIAZEPINE,URINE NEGATIVE (NEGATIVE); MDMA (ECSTASY), URINE NEGATIVE (NEGATIVE); METHADONE,URINE NEGATIVE (NEGATIVE); METHAMPHETAMINES,URINE NEGATIVE (NEGATIVE); OPIATES,URINE NEGATIVE (NEGATIVE); OXYCODONE,URINE NEGATIVE (NEGATIVE); PHENCYCLIDINE,URINE NEGATIVE (NEGATIVE); TCA,URINE NEGATIVE (NEGATIVE)
[2024-12-23 16:44] LABS: BACTERIA,URINE OCCASIONAL /HPF (0-FEW/HPF); EPITHELIAL CELLS,URINE OCCASIONAL /HPF (NOT SEEN); MUCUS,URINE RARE /LPF (NOT SEEN); RBC,URINE PACKED /HPF (0-5); WBC,URINE NOT SEEN /HPF (0-5/HPF)
[2024-12-23] MEDS: Bacitracin Oint 1 GM U/D Packet TOP ONE (16:53)
[2024-12-23] MEDS: fentaNYL 100 MCG/2 ML SDV IVPUSH ONE (17:06)
[2024-12-23 17:14] VITALS: BP 115/69; PULSE 72
== END 2024-12-23 17:08 | disposition home or self-care (01) ==
LOC: EEVIPCON 14:19 → DL.ED 14:19
DX: N93.9 Abnormal uterine and vaginal bleeding, unspecified (principal); J45.909 Unspecified asthma, uncomplicated; Z86.16 Personal history of COVID-19; Z88.5 Allergy status to narcotic agent; Z79.899 Other long term (current) drug therapy
CPT/HCPCS: 36415; 76830; 80053; 80305; 81001; 81025; 83605; 83735; 85025; 85610; 86140; 86850; 86900; 86901; 87086; 87088; 87186; 96361; 96374; 96375; 99283; 99284; A9270; J3010; J7030; J7040

== ENCOUNTER 2025-01-21 14:28 | Emergency (ER) | payer MEDICAID ==
[2025-01-21 15:44] LABS: AMPHETAMINES,URINE NEGATIVE (NEGATIVE); BARBITURATES,URINE NEGATIVE (NEGATIVE); MDMA (ECSTASY), URINE NEGATIVE (NEGATIVE); METHAMPHETAMINES,URINE POSITIVE (NEGATIVE); OPIATES,URINE NEGATIVE (NEGATIVE); OXYCODONE,URINE NEGATIVE (NEGATIVE); PHENCYCLIDINE,URINE NEGATIVE (NEGATIVE); TCA,URINE NEGATIVE (NEGATIVE)
[2025-01-21 16:19] VITALS: BP 114/66; PULSE 74
== END 2025-01-21 16:19 ==
LOC: DL.ED 14:28
DX: Z53.21 Procedure and treatment not carried out due to patient leaving prior to being seen by health care provider (principal)
CPT/HCPCS: 80305-QW; 81025

== ENCOUNTER 2025-03-09 19:14 | Emergency (ER) | payer MEDICAID ==
[2025-03-09] MEDS ORDERED: Sodium Chloride 0.9% 10 ML Syringe FLUSH PRN (19:35)
[2025-03-09] MEDS: Lactated Ringers 1,000 ML IV ONE (19:48)
[2025-03-09 19:54] LABS: BASOPHILS PERCENT AUTO 0.4 % (0.0-1.0); EOSINOPHILS PERCENT AUTO 6.5 % (1.0-3.0); LYMPHOCYTES PERCENT AUTO 6.3 % (20.5-50.1); MONOCYTES PERCENT AUTO 11.8 % (2-8); NEUTROPHILS PERCENT AUTO 75.0 % (42.2-75.2); PLATELET COUNT,PLT 244 10^3/uL (150-450); RED BLOOD CELL COUNT 5.12 10^6/uL (4.2-5.4); WHITE BLOOD CELL COUNT,WBC 5.3 10^3/uL (5.0-10.0)
[2025-03-09 20:14] LABS: A/G RATIO 0.9; ALANINE AMINOTRANSFERASE,ALT 233 U/L (14-59); ASPARTATE AMNIOTRANSFERASE,AST 185 U/L (15-37); BILIRUBIN TOTAL 2.0 mg/dL (0.2-1.0); BLOOD UREA NITROGEN,BUN 5 mg/dL (7-18); CARBON DIOXIDE,CO2 25 mmol/L (21-32); CHLORIDE,CL 105 mmol/L (98-107); CREATININE 0.52 mg/dL (0.55-1.02); EST CRCL DRUG DOSING (CG) 128.11 mL/min; GLUCOSE RANDOM 109 mg/dL (70-99); POTASSIUM,K 3.6 mmol/L (3.5-5.1); PROTEIN TOTAL,TP 7.3 g/dL (6.4-8.2); SODIUM,NA 141 mmol/L (136-145)
[2025-03-09 20:18] LABS: ESTIMATED GFR 120 mL/min (>=60); ETHANOL BLOOD MEDICAL < 3 mg/dL (0)
[2025-03-09] MEDS: Ondansetron 4 MG/2 ML SDV IVPUSH ONE (20:24)
[2025-03-09] MEDS: Iopamidol 612 MG/ML 100 ML Bottle IVPUSH ONE (20:49)
[2025-03-09 22:18] VITALS: BP 110/50; PULSE 82
[2025-03-09] MEDS: Take Home: Ondansetron 4 MG Tab.DIS, 5 Tab Pack PO ONE (23:28)
== END 2025-03-09 23:23 | disposition home or self-care (01) ==
LOC: DL.ED 19:14
DX: A08.4 Viral intestinal infection, unspecified (principal); E80.6 Other disorders of bilirubin metabolism; R79.89 Other specified abnormal findings of blood chemistry; J45.909 Unspecified asthma, uncomplicated; Z88.5 Allergy status to narcotic agent; Z79.899 Other long term (current) drug therapy; Z86.16 Personal history of COVID-19
CPT/HCPCS: 36415; 74177; 80053; 80307; 85025; 87428; 96361; 96374; 99285; A9270; J2405; J7120; Q0162; Q9967; 99284

== ENCOUNTER 2025-03-12 16:03 | Emergency (ER) | payer MEDICAID ==
[2025-03-12 16:44] LABS: PLATELET COUNT,PLT 202 10^3/uL (150-450); RED BLOOD CELL COUNT 5.42 10^6/uL (4.2-5.4); WHITE BLOOD CELL COUNT,WBC 6.9 10^3/uL (5.0-10.0)
[2025-03-12 16:49] LABS: EOSINOPHILS PERCENT AUTO 2.5 % (1.0-3.0); LYMPHOCYTES PERCENT AUTO 47.7 % (20.5-50.1); MONOCYTES PERCENT AUTO 21.5 % (2-8); NEUTROPHILS PERCENT AUTO 28.0 % (42.2-75.2)
[2025-03-12 16:50] LABS: BASOPHILS PERCENT AUTO 0.3 % (0.0-1.0)
[2025-03-12 16:59] LABS: INR 1.1 (0.9-1.2)
[2025-03-12] MEDS: Ondansetron 4 MG/2 ML SDV IVPUSH ONE ×2 (17:05→20:28)
[2025-03-12] MEDS: Promethazine 25 MG/ML SDV IM ONE (17:07)
[2025-03-12 17:10] LABS: A/G RATIO 0.92; ASPARTATE AMNIOTRANSFERASE,AST 898 U/L (15-37); BILIRUBIN TOTAL 6.2 mg/dL (0.2-1.0); BLOOD UREA NITROGEN,BUN 9 mg/dL (7-18); CARBON DIOXIDE,CO2 27 mmol/L (21-32); CHLORIDE,CL 104 mmol/L (98-107); CREATININE 0.52 mg/dL (0.55-1.02); EST CRCL DRUG DOSING (CG) 148.79 mL/min; GLUCOSE RANDOM 99 mg/dL (70-99); POTASSIUM,K 3.4 mmol/L (3.5-5.1); PROTEIN TOTAL,TP 6.9 g/dL (6.4-8.2); SODIUM,NA 140 mmol/L (136-145)
[2025-03-12 17:11] LABS: ALANINE AMINOTRANSFERASE,ALT > 1000 U/L (14-59); ESTIMATED GFR 120 mL/min (>=60); ETHANOL BLOOD MEDICAL < 3 mg/dL (0)
[2025-03-12 17:16] LABS: BAND PERCENT MAN 3 %; EOSINOPHILS PERCENT MAN 4 % (1-3); LYMPHOCYTES PERCENT MAN 42 % (20-50); MONOCYTES PERCENT MAN 17 % (2-8); SEG NEUTROPHILS PERCENT MAN 34 % (42-75)
[2025-03-12 17:17] LABS: ATYPICAL LYMPHOCYTES MANY; PLATELET COUNT ESTIMATE ADEQUATE
[2025-03-12] MEDS: Iopamidol 612 MG/ML 100 ML Bottle IVPUSH ONE (18:28)
[2025-03-12 20:07] VITALS: BP 122/67; PULSE 72
== END 2025-03-12 22:44 ==
LOC: DL.ED 16:03
DX: R16.0 Hepatomegaly, not elsewhere classified (principal); R94.5 Abnormal results of liver function studies; J45.909 Unspecified asthma, uncomplicated; E66.9 Obesity, unspecified; Z86.16 Personal history of COVID-19; Z88.5 Allergy status to narcotic agent; Z79.899 Other long term (current) drug therapy; Z68.31 Body mass index [BMI] 31.0-31.9, adult
CPT/HCPCS: 36415; 74177; 80053; 80074; 80143; 80307; 82140; 82248; 85025; 85610; 96361; 96374; 96376; 99284-25; J2405; J7030; Q9967

== ENCOUNTER 2025-04-04 18:23 | Emergency (ER) | payer MEDICAID ==
[2025-04-04 18:51] VITALS: BP 128/71; PULSE 86
== END 2025-04-04 19:00 | disposition left against medical advice (07) ==
LOC: DL.ED 18:23
DX: Z53.21 Procedure and treatment not carried out due to patient leaving prior to being seen by health care provider (principal)